=== PATIENT | female | born 1950 | race Native Hawaiian/Other Pacific Islander ===

== ENCOUNTER 2020-05-13 10:23 | Outpatient (CLI) | payer OTHER | END 2020-05-13 19:51 | disposition home or self-care (01) | LOC: RAD 10:23 | PROVIDERS: ATTEND Nurse Practitioner Family | DX: Z13.820 Encounter for screening for osteoporosis (principal); N95.8 Other specified menopausal and perimenopausal disorders; M19.90 Unspecified osteoarthritis, unspecified site ==

== ENCOUNTER 2022-06-08 10:59 | Outpatient (CLI) | payer OTHER | END 2022-06-08 17:00 | disposition home or self-care (01) | LOC: RAD 10:59 | PROVIDERS: ATTEND Physician Assistant | DX: C50.111 Malignant neoplasm of central portion of right female breast (principal); R21 Rash and other nonspecific skin eruption; Z13.820 Encounter for screening for osteoporosis; N95.8 Other specified menopausal and perimenopausal disorders ==